=== PATIENT | male | born 1950 | race Two or more races ===

== ENCOUNTER 2018-10-25 08:10 | Emergency (ER) | payer OTHER ==
[~2018-10-25] VITALS: Ht 165.1 cm; Wt 80.7 kg
[2018-10-25] MEDS ORDERED: LASIX20 MG (08:18)
[2018-10-25] MEDS ORDERED: LIPITOR20 MG PO (08:18)
[2018-10-25] MEDS ORDERED: TRILIPIX45 MG (08:18)
[2018-10-25] MEDS ORDERED: LOTREL 10-20 M1 EACH (08:18)
== END 2018-10-25 13:22 | disposition home or self-care (01) ==
LOC: ER 08:10
DX: S61.412A Laceration without foreign body of left hand, initial encounter (principal); W45.8XXA Other foreign body or object entering through skin, initial encounter; Y93.89 Activity, other specified; Y92.89 Other specified places as the place of occurrence of the external cause; Y99.8 Other external cause status

== ENCOUNTER 2021-12-30 08:00 | Outpatient (CLI) | payer OTHER ==
[~2021-12-30 08:00] MED LIST: LASIX20 MG; LIPITOR20 MG PO; LOTREL 10-20 M1 EACH; TRILIPIX45 MG
== END 2021-12-30 08:30 | disposition home or self-care (01) ==
LOC: PPH VACUNA 08:00
PROVIDERS: ATTEND Emergency Medicine Pediatric Emergency Medicine
DX: Z23 Encounter for immunization (principal)

== ENCOUNTER 2023-03-28 11:27 | Emergency (ER) | payer OTHER ==
[~2023-03-28] VITALS: Ht 167.6 cm; Wt 79.4 kg
[2023-03-28] MEDS ORDERED: PEPCID AC20 MG PO (17:41)
[2023-03-28] MEDS ORDERED: INTESTINEX680 M1 PO (17:41)
[2023-03-28] MEDS ORDERED: CIPRO500 MG PO (17:41)
== END 2023-03-28 19:17 | disposition home or self-care (01) ==
LOC: ER 11:27
DX: K52.9 Noninfective gastroenteritis and colitis, unspecified (principal); Z88.6 Allergy status to analgesic agent; N20.0 Calculus of kidney

== ENCOUNTER 2023-04-12 10:07 | Inpatient (IN) | payer OTHER ==
[~2023-04-12] VITALS: Ht 167.6 cm; Wt 71.7 kg
[~2023-04-12 10:07] MED LIST changes: +CIPRO500 MG PO; +INTESTINEX680 M1 PO; +PEPCID AC20 MG PO
[2023-04-17] MEDS ORDERED: ZITHROMAX500 MG PO (07:19)
== END 2023-04-17 11:11 | disposition home or self-care (01) | DRG 372 ==
LOC: ER 10:07 → MEDI 15:14
PROVIDERS: ADMIT Internal Medicine; ATTEND Internal Medicine
PROC: BW21ZZZ Computerized Tomography (CT Scan) of Abdomen and Pelvis (ICD-10-PCS; principal; 2023-04-13)
DX: A04.72 Enterocolitis due to Clostridium difficile, not specified as recurrent (principal); E87.20 Acidosis, unspecified; N17.9 Acute kidney failure, unspecified; K57.30 Diverticulosis of large intestine without perforation or abscess without bleeding; I10 Essential (primary) hypertension; E78.5 Hyperlipidemia, unspecified

== ENCOUNTER 2023-05-03 11:14 | Emergency (ER) | payer OTHER ==
[~2023-05-03] VITALS: Ht 167.6 cm; Wt 71.7 kg
[~2023-05-03 11:14] MED LIST changes: +ZITHROMAX500 MG PO
[2023-05-03] MEDS ORDERED: PEPCID20 MG PO (17:56)
[2023-05-03] MEDS ORDERED: INTESTINEX680 M1 PO (17:56)
== END 2023-05-03 19:15 | disposition home or self-care (01) ==
LOC: ER 11:14
DX: K52.9 Noninfective gastroenteritis and colitis, unspecified (principal); Z88.6 Allergy status to analgesic agent; E11.9 Type 2 diabetes mellitus without complications; I10 Essential (primary) hypertension; E78.49 Other hyperlipidemia; E78.00 Pure hypercholesterolemia, unspecified; E86.0 Dehydration; N19 Unspecified kidney failure; Z20.822 Contact with and (suspected) exposure to COVID-19
CPT/HCPCS: 36415; 93005; 96365; 96366; 99284; J7030

== ENCOUNTER 2023-05-08 09:45 | Emergency (ER) | payer OTHER ==
[~2023-05-08] VITALS: Ht 167.6 cm; Wt 63.5 kg
[~2023-05-08 09:45] MED LIST changes: +PEPCID20 MG PO
== END 2023-05-08 18:19 | disposition home or self-care (01) ==
LOC: ER 09:45
DX: K59.00 Constipation, unspecified (principal); Z88.6 Allergy status to analgesic agent
CPT/HCPCS: 36415; 74176; 96372; 99284; J2250; J3490

== ENCOUNTER 2023-05-14 07:39 | Inpatient (IN) | payer OTHER ==
[~2023-05-14] VITALS: Ht 167.6 cm; Wt 70.3 kg
--- NOTE | 2023-05-14 07:50 | NUR ---
PACIENTE ALERTA Y ORIENTDADO X 3 REFIERE DOLOR ABDOMINAL, REFIERE QUE A ESTADO VARIA VECEZ AQUI POR LO MISMO, ADEMAS DICE TENER SANGRADO RCTAL.
--- NOTE | 2023-05-14 09:05 | NUR ---
PTE MASCULINO ALERTA Y ORIENTADO X3 ES EVALUADO POR . SE ORIENTA SOBRE ORDEN DE TX REFIERE COMPRENDER. SE COLECTAN [facility] Y SE CANALIZA VENA BAJO MEDIDAS ASEPTICAS. SE ADMINISTRAN MEDICAMENTOS, BAJO MEDIDAS ASEPTICAS. SE NOTIFICA RADIOLOGIA XRAY PENDIENTE.
[2023-06-13] MEDS ORDERED: SPIRONOLACTONE25 MG PO (07:01)
[2023-06-13] MEDS ORDERED: HYOSCYAMINE0.125 M1 SL (07:02)
== END 2023-06-13 12:30 | disposition home or self-care (01) | DRG 386 ==
LOC: ER 07:39 → MEDI 18:24
PROVIDERS: Emergency Medicine Pediatric Emergency Medicine; General Practice; Internal Medicine; Internal Medicine Gastroenterology; Internal Medicine Infectious Disease; Internal Medicine Nephrology; ADMIT Internal Medicine; ATTEND Internal Medicine
PROC: 02HV33Z Insertion of Infusion Device into Superior Vena Cava, Percutaneous Approach (ICD-10-PCS; 2023-05-15)
PROC: 30233N1 Transfusion of Nonautologous Red Blood Cells into Peripheral Vein, Percutaneous Approach (ICD-10-PCS; 2023-05-20)
PROC: 0DB98ZX Excision of Duodenum, Via Natural or Artificial Opening Endoscopic, Diagnostic (ICD-10-PCS; principal; 2023-05-23)
PROC: 0DB68ZX Excision of Stomach, Via Natural or Artificial Opening Endoscopic, Diagnostic (ICD-10-PCS; 2023-05-23)
PROC: 0DB58ZX Excision of Esophagus, Via Natural or Artificial Opening Endoscopic, Diagnostic (ICD-10-PCS; 2023-05-23)
PROC: 0DBM8ZX Excision of Descending Colon, Via Natural or Artificial Opening Endoscopic, Diagnostic (ICD-10-PCS; 2023-05-24)
PROC: 0DBN8ZX Excision of Sigmoid Colon, Via Natural or Artificial Opening Endoscopic, Diagnostic (ICD-10-PCS; 2023-05-24)
PROC: 0DBP8ZX Excision of Rectum, Via Natural or Artificial Opening Endoscopic, Diagnostic (ICD-10-PCS; 2023-05-24)
DX: K51.811 Other ulcerative colitis with rectal bleeding (principal); N17.9 Acute kidney failure, unspecified; D50.0 Iron deficiency anemia secondary to blood loss (chronic); E78.5 Hyperlipidemia, unspecified; I12.9 Hypertensive chronic kidney disease with stage 1 through stage 4 chronic kidney disease, or unspecified chronic kidney disease; N18.9 Chronic kidney disease, unspecified; E86.0 Dehydration; F10.20 Alcohol dependence, uncomplicated; Z20.822 Contact with and (suspected) exposure to COVID-19; D13.2 Benign neoplasm of duodenum

== ENCOUNTER 2023-06-17 09:44 | Inpatient (IN) | payer OTHER ==
[~2023-06-17] VITALS: Ht 167.6 cm; Wt 54.4 kg
[~2023-06-17 09:44] MED LIST changes: +HYOSCYAMINE0.125 M1 SL; +SPIRONOLACTONE25 MG PO
--- NOTE | 2023-06-17 10:00 | NUR ---
PACIENTE AOX3 AL MOMENTO DEL TRAIGE, ESPOSA REFIERE QUE TURNER ESPOSO SUFRIO UN EPISODEO DE DESORIENTA HOY EN LA MADRUGADA.
[2023-06-17] MEDS ORDERED: DUPIXENT300 MG/2 M SQ (10:01)
--- NOTE | 2023-06-17 10:49 | NUR ---
PACIENTE EVALUADO POR DR. SCHRADER QUIEN ORDENA TRATAMIENTO. LILA DOTY ORIENTA Y EDUCA PACIENTE SOBRE TRATAMIENTO QUIEN REFIERE ENTENDER. SE [place] [facility] BAJO MEDIDAS ASEPTICAS. SE ADMINISTRA MEDICAMENTO EULOGIO ORDEN MEDICA.
--- NOTE | 2023-06-17 15:47 | NUR ---
SE RECIBE PTE ALERTA ORIENTADO X3 EN COMPANIA DE FAMILIAR EN CAMA CON BARANDAS ELEVADAS POR TURNER SEGURIDAD.VENOPUNCION PATENTE TISH DE EDEMA Y ERITEMA RECIBIENDO RECIBIENDO 0.9 NSS BAJANDO A 100ML/HR.PENDIENTE CONSULTA CON .
== END 2023-06-19 08:07 | disposition home or self-care (01) | DRG 386 ==
LOC: ER 09:45 → SEC-K 18:32
PROVIDERS: Emergency Medicine; General Practice; ADMIT Internal Medicine; ATTEND Internal Medicine
PROC: BW28ZZZ Computerized Tomography (CT Scan) of Head (ICD-10-PCS; principal; 2023-06-17)
PROC: B24BZZZ Ultrasonography of Heart with Aorta (ICD-10-PCS; 2023-06-18)
DX: K51.80 Other ulcerative colitis without complications (principal); N17.9 Acute kidney failure, unspecified; Z20.822 Contact with and (suspected) exposure to COVID-19; R41.82 Altered mental status, unspecified; I12.9 Hypertensive chronic kidney disease with stage 1 through stage 4 chronic kidney disease, or unspecified chronic kidney disease; N18.9 Chronic kidney disease, unspecified; D63.1 Anemia in chronic kidney disease

== ENCOUNTER → 2024-04-25 | Day surgery (SDC) | payer OTHER ==
[2024-04-23 09:08] LABS: HEMATOCRIT 45.2 % (39.0-48.0); HEMOGLOBIN 15.3 g/dL (13-16.00); MEAN CELL VOLUME 83.4 fL (80.0-100.00); MEAN CORPUSCULAR HEMOGLOBIN 28.3 pg (27.00-32.0); MEAN CORPUSCULAR HGB CONC 33.9 g/dl (32.0-36.0); PLATELET COUNT 227 K/uL (150-450); RED BLOOD COUNT 5.42 M/uL (4.00-6.00)
[2024-04-23 09:10] LABS: URINE APPEARANCE Clear; URINE BILIRRUBIN Negative (NEGATIVE); URINE BLOOD Negative; URINE COLOR Yellow; URINE GLUCOSE Negative (NEGATIVE); URINE LEUKOCYTE Moderate; URINE NITRATE Negative; URINE PROTEIN Negative (NEGATIVE); URINE UROBILINOGEN 0.2 E.U./dl
[2024-04-23 09:11] LABS: URINE BACTERIA 42.8 uL (0.0-1933); URINE WBC 607.7 uL (0.0-23.2)
[2024-04-23 09:12] LABS: URINE EPITHELIAL CELLS 0.9 uL (0.0-38.8); URINE RBC 0.6 uL (0.0-20.8)
[2024-04-23 09:47] LABS: ALBUMIN 4.1 gm/dL (3.4-5.0); BILIRUBIN TOTAL 0.4 mg/dL (0.3-1.2); CALCIUM 10.3 mg/dL (8.5-10.1); CREATININE SERUM 1.58 mg/dL (0.70-1.30); GFR 43.33; GLOBULINA 4.1 G/DL (2.4-3.5); POTASSIUM 4.87 mEq/L (3.5-5.1); TOTAL PROTEIN 8.2 gm/dL (6.4-8.2)
[2024-04-23 09:51] LABS: INR 1.04; PARTIAL THROMBOPLASTIN TIME 33.5 SECONDS (22.0-34.0); PROTHROMBIN TIME 10.9 SECONDS (9.0-11.5)
[~2024-04-25] VITALS: Ht 167.6 cm; Wt 72.6 kg
[~2024-04-25] MED LIST changes: +BUPIVACAINE HCL/Mpf 0.5% 10ML VIAL ONE; +BUPIVACAINE HCL/PF 0.25% 30ML VIAL InF ONE; +CEFAZOLIN SODIUM 1,000 MG VIAL IV ONE; +CEFAZOLIN SODIUM 1,000 MG VIAL ONE; +DUPIXENT300 MG/2 M SQ; +INFLECTRA100 MG IV; +LIDOCAINE HCL 1%/EPINEPHRINE 20ML VIAL IJ ONE; +LOVAZA1 GM PO; +MIRALAX17 GM PO; +TRAMADOL HCL50 MG PO; +TYLENOL ARTHRI650 MG PO
== END | disposition home or self-care (01) ==
LOC: ADM 04-23 07:45 → CIR.AMB 07:45
PROVIDERS: ATTEND Surgery
DX: K40.90 Unilateral inguinal hernia, without obstruction or gangrene, not specified as recurrent (principal); K42.0 Umbilical hernia with obstruction, without gangrene; Z88.6 Allergy status to analgesic agent; I10 Essential (primary) hypertension
CPT/HCPCS: 49650; 49592; C1781

== ENCOUNTER 2025-01-04 12:17 | Emergency (ER) | payer OTHER ==
[~2025-01-04] VITALS: Ht 170.2 cm; Wt 66.7 kg
[~2025-01-04 12:17] MED LIST changes: -BUPIVACAINE HCL/Mpf 0.5% 10ML VIAL ONE; -BUPIVACAINE HCL/PF 0.25% 30ML VIAL InF ONE; -CEFAZOLIN SODIUM 1,000 MG VIAL IV ONE; -CEFAZOLIN SODIUM 1,000 MG VIAL ONE; -LIDOCAINE HCL 1%/EPINEPHRINE 20ML VIAL IJ ONE
[2025-01-04] MEDS ORDERED: LASIX20 MG PO (12:57)
[2025-01-04] MEDS ORDERED: SUCRALFATE 1 G TABLET PO ONE (13:45)
[2025-01-04] MEDS ORDERED: HYOSCYAMINE SULFATE 0.125 MG TAB.SUBL SL ONE (13:45)
[2025-01-04] MEDS ORDERED: PANTOPRAZOLE SODIUM 40 MG/VIAL VIAL IV PUSH ONE (13:45)
[2025-01-04] MEDS ORDERED: FAMOtidine 10 MG/ML (4ML VIAL) IV PUSH ONE (13:45)
[2025-01-04] MEDS ORDERED: 0.9 % SODIUM CHLORIDE 1,000 ML IV ONE (13:45)
[2025-01-04] MEDS ORDERED: FAMOTIDINE/PF 20 MG/2 ML VIAL ONE (13:55)
[2025-01-04] MEDS ORDERED: HYOSCYAMINE SULFATE 0.125 MG TAB.SUBL ONE (13:55)
[2025-01-04 14:29] LABS: HEMATOCRIT 47.3 % (39.0-48.0); HEMOGLOBIN 15.8 g/dL (13-16.00); MEAN CELL VOLUME 85.1 fL (80.0-100.00); MEAN CORPUSCULAR HEMOGLOBIN 28.4 pg (27.00-32.0); MEAN CORPUSCULAR HGB CONC 33.3 g/dl (32.0-36.0); PLATELET COUNT 206 K/uL (150-450); RED BLOOD COUNT 5.57 M/uL (4.00-6.00); RED CELL DISTRIBUTION WIDTH 15.5 % (11.5-14.5)
[2025-01-04 16:08] LABS: ALBUMIN 3.9 gm/dL (3.4-5.0); BILIRUBIN TOTAL 0.49 mg/dL (0.3-1.2); CALCIUM 9.6 mg/dL (8.5-10.1); CREATININE SERUM 1.28 mg/dL (0.70-1.30); GFR 55.24; GLOBULINA 4.3 G/DL (2.4-3.5); POTASSIUM 4.22 mEq/L (3.5-5.1); TOTAL PROTEIN 8.2 gm/dL (6.4-8.2)
[2025-01-04] MEDS ORDERED: MORPHINE SULFATE 2 MG/ML SYRINGE IV ONE (17:00)
== END 2025-01-05 01:23 | disposition home or self-care (01) ==
LOC: ER 12:18
PROVIDERS: General Practice
DX: K51.90 Ulcerative colitis, unspecified, without complications (principal); K56.609 Unspecified intestinal obstruction, unspecified as to partial versus complete obstruction; R10.13 Epigastric pain; R10.9 Unspecified abdominal pain; I10 Essential (primary) hypertension; Z88.6 Allergy status to analgesic agent
CPT/HCPCS: 36415; 74022; 74177; 96365; 96366; 99284; J2270; J3490 ×2; J7030; Q9965

== ENCOUNTER 2025-04-03 06:13 | Outpatient (CLI) | payer OTHER ==
[~2025-04-03 06:13] MED LIST changes: +LASIX20 MG PO
[2025-04-03 07:24] LABS: BASO % 1.0 % (0.1-1.2); EOS # 0.16 (0.04-0.54); EOS % 2.7 % (0.7-7.0); LYMPH # 2.39 (1.18-3.74); LYMPH % 40.4 % (19.3-53.1); MEAN PLATELET VOLUME 9.70 fl (9.4-12.4); MONO # 0.60 (0.24-0.82); MONO % 10.1 % (4.7-12.5); NEUT # 2.69 (1.56-6.13); NEUT % 45.5 % (34.0-71.1); RED CELL DISTRIBUTION WIDTH 14.7 % (11.6-14.4)
[2025-04-03 08:38] LABS: ALT/SGPT 18.0 U/L (12-78); AST/SGOT 12.0 U/L (15-37); BILIRUBIN TOTAL 0.63 mg/dL (0.3-1.2); BUN CREA RATIO 19.0 (7.0-25.0); CREATININE SERUM 1.31 mg/dL (0.70-1.30); GFR 53.63; GLOBULINA 3.8 G/DL (2.4-3.5); GLUCOSE FASTING 93.0 mg/dL (65-100); LDH 131.0 U/L (87-241); OSMOLALITY SERUM 287.0 MOSM/KG (275-295)
[2025-04-03 13:13] LABS: MANUAL PLATELET COUNT 240
== END 2025-04-03 06:17 | disposition home or self-care (01) ==
LOC: LAB 06:13
PROVIDERS: ATTEND Internal Medicine Hematology & Oncology
DX: D50.8 Other iron deficiency anemias (principal); R79.9 Abnormal finding of blood chemistry, unspecified; I10 Essential (primary) hypertension; R74.02 Elevation of levels of lactic acid dehydrogenase [LDH]; K76.89 Other specified diseases of liver; K51.911 Ulcerative colitis, unspecified with rectal bleeding; D51.3 Other dietary vitamin B12 deficiency anemia

== ENCOUNTER → 2025-05-30 06:27 | Outpatient (CLI) | payer OTHER ==
[2025-05-30 07:28] LABS: BASO % 1.4 % (0.1-1.2); EOS # 0.14 (0.04-0.54); EOS % 2.8 % (0.7-7.0); LYMPH # 2.40 (1.18-3.74); LYMPH % 47.3 % (19.3-53.1); MEAN PLATELET VOLUME 9.80 fl (9.4-12.4); MONO # 0.53 (0.24-0.82); MONO % 10.5 % (4.7-12.5); NEUT # 1.91 (1.56-6.13); NEUT % 37.6 % (34.0-71.1); RED CELL DISTRIBUTION WIDTH 14.4 % (11.6-14.4)
[2025-05-30 07:40] LABS: ALT/SGPT 21.0 U/L (12-78); AST/SGOT 20.0 U/L (15-37); BILIRUBIN TOTAL 0.61 mg/dL (0.3-1.2); BUN CREA RATIO 13.0 (7.0-25.0); CREATININE SERUM 1.27 mg/dL (0.70-1.30); FE 91.0 ug/dl (65-175); GFR 55.59; GLOBULINA 4.2 G/DL (2.4-3.5); GLUCOSE FASTING 94.0 mg/dL (65-100); LDH 135.0 U/L (87-241); OSMOLALITY SERUM 281.0 MOSM/KG (275-295)
[2025-05-30 14:16] LABS: FOLIC ACID 9.04 ng/ml (4.78-20)
== END | disposition home or self-care (01) ==
LOC: LAB 06:27
PROVIDERS: ATTEND Internal Medicine Hematology & Oncology
DX: K51.911 Ulcerative colitis, unspecified with rectal bleeding (principal); D50.8 Other iron deficiency anemias; D51.3 Other dietary vitamin B12 deficiency anemia; I10 Essential (primary) hypertension; R74.02 Elevation of levels of lactic acid dehydrogenase [LDH]; K76.89 Other specified diseases of liver; D51.8 Other vitamin B12 deficiency anemias